=== PATIENT | female | born 1960 | race Caucasian/White ===

== ENCOUNTER → 2020-12-27 12:43 | Outpatient (BNVA) | payer OTHER, SELFPAY | PROVIDERS: PCP Internal Medicine; Visit Provider Urology | DX: N32.81 Overactive bladder (principal); R35.0 Frequency of micturition; N39.41 Urge incontinence | CPT/HCPCS: 99212 ==

== ENCOUNTER 2021-01-16 07:51 | Day surgery (SDC) | payer OTHER, SELFPAY ==
[2021-01-10 13:08] VITALS: BMI 35.2
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
[2021-01-16 09:13] VITALS: BP 110/50; PULSE 71; RESP 18; TEMP 36.1; O2SAT 96
[2021-01-16 09:20] LABS: Glucose, Whole Blood 110 mg/dL (60-115)
[2021-01-16] MEDS: Lactated Ringers 1,000 ML 50 ML IV (09:29)
[2021-01-16] MEDS: levoFLOXacin 500 MG TABLET PO (09:31)
[2021-01-16] MEDS: Desmopressin Acetate 20 MCG in 0.9 % Sodium Chloride 50 ML 100 MCG IV (10:11)
[2021-01-16 10:50] VITALS: BP 91/38; PULSE 76; RESP 16; TEMP 36.2; O2SAT 95
[2021-01-16] MEDS: oxyCODONE HCl Immed Release 5 MG TABLET PO (10:58)
[2021-01-16] MEDS: Acetaminophen 325 MG TABLET 650 MG PO (10:58)
--- NOTE | 2021-01-16 10:58 | W.PM.OPN ---
Operative Note Operative Note Date of Service: 01/16/21 Narrative: PreOperative Diagnosis: Interstim generator removal Post Operative Diagnosis: InterStim generator removal Procedure: InterStim generator removal Surgeon: Dr Bib Aaron Anesthesia: Sedation plus local Indications for procedure: Had InterStim for many years has never been able to properly determine correct settings. Would have control of urge but with side effects of tension through vagina. Would rather have InterStim removed. Is aware of the risks and benefits particularly bleeding given her setting of von Willebrand's syndrome Procedure: After informed consent was verified the patient was brought to the operating room and placed in a prone position. anesthesia was administered per protocol. Patient was prepped and draped in sterile fashion. DDAVP was confirmed. Antibiotics were confirmed. Local anesthetic infiltrated at old incision site. Using a sharp knife the incision was taken down through the skin and the subcutaneous tissue to the underlying fat. The incision was taken down through the fat till the generator was encountered. The generator was removed and using the special hex local bulk driver the wire was released. The wire was placed back into the incision. The generator was removed. The pocket was irrigated with fluid. Using a 3 0 Vicryl the deep tissue was reapproximated. Skin was closed with a running 4-0 Monocryl. Dressing was placed consisting of glue and Steri-Strips. Pathology: - Drains: -
[2021-01-16 11:05] VITALS: BP 114/62; PULSE 73; RESP 18; TEMP 36.2; O2SAT 99
== END 2021-01-16 11:51 ==
LOC: HO.SSS 07:52
PROVIDERS: PCP Internal Medicine; Visit Provider Urology
PROC: (CPT 64595; principal; 2021-01-16 10:10)
DX: Z45.42 Encounter for adjustment and management of neurostimulator (principal); N32.81 Overactive bladder; R35.0 Frequency of micturition; E11.9 Type 2 diabetes mellitus without complications; I10 Essential (primary) hypertension; D68.0 Von Willebrand disease; Z88.1 Allergy status to other antibiotic agents; Z88.8 Allergy status to other drugs, medicaments and biological substances; Z87.891 Personal history of nicotine dependence
CPT/HCPCS: 64595; 82947; J2597

== ENCOUNTER → 2021-02-23 09:32 | Outpatient (BNVA) | payer OTHER, SELFPAY | PROVIDERS: PCP Internal Medicine; Visit Provider Urology | DX: N32.81 Overactive bladder (principal); R35.0 Frequency of micturition | CPT/HCPCS: 99212 ==